=== PATIENT | female | born 1950 | race Asian ===

== ENCOUNTER 2016-02-21 09:30 | Outpatient (CLI) | payer MEDICARE, OTHER | END 2016-02-21 09:31 | disposition home or self-care (01) | DX: E87.6 Hypokalemia (principal) ==

== ENCOUNTER 2016-05-08 09:38 | Outpatient (CLI) | payer MEDICARE, OTHER | END 2016-05-08 09:39 | disposition home or self-care (01) | DX: E87.6 Hypokalemia (principal); I10 Essential (primary) hypertension; Z79.899 Other long term (current) drug therapy ==

== ENCOUNTER 2016-07-05 09:28 | Observation (INO) | payer MEDICARE, OTHER ==
--- NOTE | 2016-07-05 09:40 | ED Physician Documentation ---
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 - Present Medications Home Medications: Ambulatory Orders Medication Instructions Recorded Confirmed Atenolol 25 mg ORAL BID 04/04/14 07/05/16 Pravastatin Sodium 40 mg PO QPM 04/04/14 07/05/16 Aspirin [Aspirin EC] 81 mg PO DAILY 07/05/16 07/05/16 Hydrochlorothiazide 25 mg PO DAILY 07/05/16 07/05/16 Potassium Chloride 10 meq PO Q48H 07/05/16 07/05/16 - Allergies Allergies/Adverse Reactions: Allergies Allergy/AdvReac Type Severity Reaction Status Date / Time No Known Drug Allergies Allergy Verified 04/04/14 10:29 - Social History Does the pt smoke?: No Smoking Status: Never smoker Does the pt drink ETOH?: No Does the pt have substance abuse?: No PD ED PE NORMAL - Vitals Vital signs reviewed: Yes - General General: No: Alert and oriented X 3 (X 2) - HEENT HEENT: Atraumatic, PERRL, EOMI - Neck Neck: Supple, no meningeal sign - Cardiac Cardiac: RRR - Respiratory Respiratory: No respiratory distress, Clear bilaterally - Abdomen Abdomen: Soft, Non tender - Derm Derm: Normal color - 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 No: Alert and oriented X 3 (person and place only), No motor deficit (R hemiparesis baseline per ) Results - Vitals Vitals: Vital Signs - 24 hr 07/05/16 09:32 Temperature 36.9 C Heart Rate 79 Respiratory 20 Rate Blood Pressure 155/110 H O2 Saturation 99 Oxygen O2 Source Room air - EKG (time done) 0942 Rate: Rate (enter#) (79) Rhythm: Atrial fibrillation Intervals: No: Normal VA Ischemia: Non specific changes (flat T waves diffusely, inv T waves inf) - Labs Labs: Laboratory Tests 07/05/16 07/05/16 07/05/16 09:39 10:00 10:00 WBC 4.8 RBC 4.20 Hgb 13.3 Hct 37.7 MCV 89.7 MCH 31.8 H MCHC 35.4 RDW 13.2 Plt Count 168 MPV 6.3 L Neut # 2.7 Lymph # 1.6 [place] # 0.4 Eos # 0.1 Baso # 0.0 Absolute Nucleated RBC 0.00 Nucleated RBCs 0.0 Sodium 139 Potassium 3.9 Chloride 102 Carbon Dioxide 29 Anion Gap 8.0 BUN 16 Creatinine 0.9 Estimated GFR (MDRD) 63 L Glucose 111 H POC Whole Bld Glucose 84 Calcium 9.5 - Rads (name of study) CTH Radiology: See rad report PD MEDICAL DECISION MAKING - ED course ED course: sx slightly worse - more confused more reptitive questioning - per SO R weakness is at baseline not a TPA candidate 2/2 prior hemorrhagic CVA but d/w [place] 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
[2016-07-05 10:10] LABS: BASOPHILS % (AUTO) 0.9 %; EOSINOPHILS # (AUTO) 0.1 10^3/uL (0.0-0.7); EOSINOPHILS % (AUTO) 2.9 %; HCT - HEMATOCRIT 37.7 % (37.0-47.0); HGB - HEMOGLOBIN 13.3 g/dL (12.0-16.0); LYMPHOCYTES # (AUTO) 1.6 10^3/uL (1.5-3.5); LYMPHOCYTES % (AUTO) 32.1 %; MEAN CORPUSCULAR HEMOGLOBIN 31.8 pg (27.0-31.0); MEAN CORPUSCULAR HGB CONC 35.4 g/dL (32.0-36.0); MEAN CORPUSCULAR VOLUME 89.7 fL (81.0-99.0); MEAN PLATELET VOLUME 6.3 fL (7.9-10.8); MONOCYTES # (AUTO) 0.4 10^3/uL (0.0-1.0); MONOCYTES % (AUTO) 7.3 %; NEUTROPHILS # (AUTO) 2.7 10^3/uL (1.5-6.6); NEUTROPHILS % (AUTO) 56.8 %; RED CELL DISTRIBUTION WIDTH 13.2 % (12.0-15.0); UNCORRECTED WHITE BLOOD COUNT 4.8 x10^3/uL; WHITE BLOOD COUNT 4.8 x10^3/uL (4.8-10.8)
--- NOTE | 2016-07-05 10:14 | CT Preliminary Report ---
Exam: CT Head W/O Impression: Redemonstration of encephalomalacia involving the left frontal lobe consistent with an ol d infarct. No evidence of an intracranial hemorrhage. No significant change when compared to the previous study. [facility] The above findings were discussed with Dr. Sarah Beth Matthews by Dr. Carrie Almeida at 10:12 hrs on . SITE ID: [id number]
--- NOTE | 2016-07-05 10:17 | CT Report ---
EXAM: CT HEAD EXAM DATE: 07/05/2016 09:58 AM. CLINICAL HISTORY: Ams, hx hemorrhagic CVA. COMPARISON: 04/04/2015. TECHNIQUE: Multiaxial CT images were obtained from the foramen magnum to the vertex. IV contrast: Non e. Reformats: Coronal. In accordance with CT protocol optimization, one or more of the following dose reduction techniques w ere utilized for this exam: automated exposure control, adjustment of mA and/or KV based on patient s ize, or use of iterative reconstructive technique. FINDINGS: There is redemonstration of encephalomalacia involving the left frontal lobe consistent with a previo us infarct. The appearance is similar to the previous study. The ventricles and cortical sulci are no rmal in appearance. There is no evidence of intraparenchymal hemorrhage or extra-axial fluid collecti on. No depressed skull fracture is seen. The visualized mastoid air cells and paranasal sinuses are c lear. No depressed skull fracture is seen. The orbits are symmetric. Impression: Redemonstration of encephalomalacia involving the left frontal lobe consistent with an ol d infarct. No evidence of an intracranial hemorrhage. No significant change when compared to the previous study. [facility] The above findings were discussed with Dr. Sarah Beth Matthews by Dr. Carrie Almeida at 10:12 hrs on . Referring Provider Line: [phone] SITE ID: [id number]
[2016-07-05 10:18] LABS: CALCIUM 9.5 mg/dL (8.5-10.3); CREATININE 0.9 mg/dL (0.4-1.0); POTASSIUM 3.9 mmol/L (3.5-5.0)
[2016-07-05] MEDS ORDERED: ONDANSETRON 4 MG/2 ML VIAL IVP PRN (10:47)
[2016-07-05] MEDS ORDERED: SODIUM CHLORIDE FLUSH 0.9% 10 ML SYRINGE IVP PRN (10:47)
[2016-07-05] MEDS ORDERED: HYDROcod/ACETAM 5/325 MG TABLET PO PRN (10:47)
[2016-07-05] MEDS ORDERED: ACETAMINOPHEN 325 MG TABLET PO PRN (10:47)
[2016-07-05] MEDS ORDERED: ONDANSETRON ODT 4 MG TABLET TL PRN (10:47)
[2016-07-05] MEDS ORDERED: IOPAMIDOL-300 100 ML VIAL IVP ONE (11:10)
--- NOTE | 2016-07-05 11:43 | CT Preliminary Report ---
Exam: CT Head Angio Impression: 1. The quality of the CT angiogram is not ideal. However, main intracranial arteries appear patent wi thout evidence of occlusion or hemodynamically significant stenosis. 2. No aneurysm is identified. 3. No enhancing intracranial space-occupying mass lesion is demonstrated on postcontrast head CT. SITE ID: [id number]
--- NOTE | 2016-07-05 13:56 | CT Report ---
CT ANGIOGRAM HEAD AND POSTCONTRAST HEAD CT CLINICAL HISTORY: 65-year-old female with transient amnesia. Please assess. COMPARISON: Head CT without contrast 07/05/2016. TECHNIQUE: CT angiogram head: 100 mL of Isovue 300 contrast were injected at a rapid rate through a large bore antecubital intraven ous catheter. The head was scanned helically during arterial phase. Data was reconstructed into 0.5 m m axial images. In addition, MIP reconstructions have been generated in multiple projections to allow better assessment of the intracranial arteries. Postcontrast head CT: Sequential 5 mm axial images were obtained through the brain following the CT angiogram. In accordance with CT protocol optimization, one or more of the following dose reduction techniques w ere utilized for this exam: automated exposure control, adjustment of mA and/or KV based on patient s ize, or use of iterative reconstructive technique. FINDINGS: CT angiogram head: Anterior circulation: The degree of intra-arterial contrast enhancement in the petrous segments of the internal carotid art eries is not optimal and the possibility of stenosis cannot be excluded. There is calcified atheroscl erotic plaque in the cavernous segments of the internal carotid arteries bilaterally. Assessment is d ifficult due to marked tortuosity of these vessels; however, no hemodynamically significant stenosis is suspected. The paraclinoid and supraclinoid ICAs appear widely patent. No ICA aneurysm is identifi ed. The A1 segments of the anterior cerebral arteries are essentially codominant. No definite anterio r communicating artery is demonstrated. There appears to be good filling of main MARIA T branches. The di stal branches are not well assessed on the images provided. The main branches of the middle cerebral arteries are unremarkable. No evidence of occlusion or hemod ynamically significant stenosis. In addition, no MCA aneurysm is demonstrated. Posterior circulation: The imaged intradural vertebral arteries are patent. The right PICA appears to be patent. No definite left PICA is demonstrated. The left PICA territory is probably supplied by the contralateral PICA or igin or ipsilateral AICA (normal anatomical variants). The basilar artery, superior cerebellar arteri es, and main branches of the posterior cerebral arteries are patent. However, there is considerable n oise on the CTA images and the possibility of mild irregularity in the posterior cerebral arteries ca nnot be excluded. Neither posterior communicating artery is demonstrated with certainty. No aneurysms are seen arising from the basilar artery trunk or apex. Postcontrast head CT: No enhancing intracranial space-occupying mass lesion is demonstrated. Noted is normal intravascular contrast enhancement in the dural venous sinuses and deep venous structures. IMPRESSION: 1. The quality of the CT angiogram is not ideal. However, main intracranial arteries appear patent wi thout evidence of occlusion or hemodynamically significant stenosis. 2. No aneurysm is identified. 3. No enhancing intracranial space-occupying mass lesion is demonstrated on postcontrast head CT. Referring Provider Line: [phone] SITE ID: [id number]
[2016-07-05] MEDS ORDERED: SODIUM CHLORIDE FLUSH 0.9% 10 ML SYRINGE IVP SCH (14:00)
--- NOTE | 2016-07-05 15:17 | MRI Preliminary Report ---
Exam: MRI Brain W/O IMPRESSION: 1. No acute or recent ischemic infarct. 2. No new hemorrhage. 3. Again seen are findings of chronic hemorrhage/hemorrhagic infarct in the left deep brain. 4. More prominent confluent region of abnormal white matter T2 hyperintensity in the left frontoparie holden brain. No evidence for restricted diffusion to suggest an acute ischemic or infectious/inflammato ry process. This likely represents chronic gliosis. 4. Again seen are additional scattered smaller nodular foci of white matter T2 hyperintensity likely secondary to aging and chronic small vessel ischemic disease similar to findings on the prior exam. [facility] SITE ID: [id number]
--- NOTE | 2016-07-05 15:32 | HISTORY & PHYSICAL EXAMINATION ---
DATE OF ADMISSION: 07/05/2016 PRIMARY CARE PROVIDER: Mat Carpio MD. ADMITTING PROVIDER: Kat Blackwood MD. CHIEF COMPLAINT: Sudden memory loss. HISTORY OF PRESENT ILLNESS: She is a very pleasant 65-year-old female who has had a hemorrha [facility] stroke in January 2006, left brain, and it left her with residuals of a weak right arm and weak right leg. Her says that he is astounded by how much she was able to recover and she can cook , quilt, do light housekeeping and pretty much keep up with him. Every once in awhile she has some mi ld memory problems, but otherwise she leads a relatively normal life. She had a scare in March where she was having some facial numbness and she was reseen in the emergency room and had a caroti d Doppler that was negative and a CT of the head was negative. She was not admitted. She has been in her usual state of health with no new complaints, no new falls, when this morning the y were getting ready to go have a cup of coffee. They are both retired, and are very social people. W hen he was in the garage and his came out, he noticed that she seemed vague, a little bit anxiou s and he watched her struggle to try and open the car door and get in the car. She could not seem to figure out how to get into the car. Then when he was talking to her, she was expressing surprise at t he jacob in their yard. She planted them, and she wanted to know who those people were that were wo rking in their yard and it the landscape people that they have always used. There is no new weakness, no new ataxia. Just confusion and memory loss. He brought her to the emergency room, where she was evaluated by Dr. Matthews and she contacted [facility] tele Neurology. She is not a candidate for TPA because of her previous hemorrhagic stroke and they a sked her to do workup with the idea that she may be possibly undergoing a new seizure disorder. Initi al CT of the head is negative. They have asked her to be placed in observation to get an MRI, as well as CT angiogram. When I am examining the patient, she continues to be easily confused. She is tearful and terrified sh e is having another stroke. She is still very easily forgetful. I introduced myself and begin examini ng her when the CT angiogram electronics maintenance technician came to come get her. When she returned back from CT angiogra m I had to reintroduce myself because she did not remember that I had already met her. She keeps on a sking her "what is going on." PAST MEDICAL HISTORY: 1. Hemorrhagic stroke in 2005. She was on a trip in [place] visiting her son. They had gotten to [place], [place], where she had a stroke. She was hospitalized in [place] for 2 weeks, then transferred to [facility] for rehabilitation for 2 weeks. 2. Hypertension. 3. Hyperlipidemia. 4. G2, P2. Total abdominal hysterectomy 43 years ago after the of her daughter. 5. Eye surgery 1 year ago for possible retinal problems. is not quite sure what it was for. ALLERGIES: NO KNOWN DRUG ALLERGIES. MEDICATIONS: 1. Aspirin 81 mg p.o. daily. 2. Atenolol 25 p.o. b.i.d.. 3. Hydrochlorothiazide 25 p.o. daily. 4. Potassium 10 mEq. q. 48 hours. 5. Pravastatin 40 mg p.o. daily. SOCIAL HISTORY: She smoked irregularly in her youth. Her has known her for over 43 years. He says that she would smoke socially, maybe once a week. She has never had a problem with alcohol abuse . She was born in [place], and went to visit her sister in [place]. From there she went to the [employer] in [place], and met her there. 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 She has been to her for 47 years, it is their first marriage to each other. CODE STATUS: FULL CODE. FAMILY HISTORY: Dad at age 92 of old age. Mom in her 70s of some weird eye cancer that ende d up being metastatic. She has 3 sisters and 1 brother, but unfortunately she is not talking to them. Have 2 children, 1 lives in [place], and that is her daughter, and she has hypertension. Her son lives in [place] and has hyperlipidemia. REVIEW OF SYSTEMS: CONSTITUTIONAL: He describes her as an energetic, happy, soul, who has never let her previous hemorrh agic stroke get her down. Completely independent with activities of daily living. ENT: Denies glaucoma or cataracts. Still has a partial loss of vision in the left eye from the previo us retinal problems. No problems with chewing or swallowing, facial dysesthesia at this time. PULMONARY: Denies coughing, wheezing, shortness of breath, chest congestion. CARDIAC: Denies chest pain or palpitations, shortness of breath, edema. No history of murmur or valvu lar heart disease. GI: Very good appetite. No change in bowel habits. No dysuria, no abdominal pain. Her last colonoscop y was maybe 4-6 years ago and was negative. GENITOURINARY: Denies urgency, frequency, dysuria, flank pain. JOINTS: Occasionally bother her, but not severely so. SKIN: No lesions or rashes. PSYCHIATRIC: Occasionally depressed for very short times, but she recovers quickly. No suicidal ideat ion. DIRECTOR OF SUPPLY CHAIN: Still has right arm weakness from previous stroke. Right arm weakness is worse than the right le g weakness. She uses circumduction gait to walk because of the right leg weakness. The right arm does not have full range of motion of the shoulder or elbow and is slightly contracted, but he says that she can cook, quilt, sew, garden without difficulty. She has no history of headaches, syncope or seiz ures. PHYSICAL EXAMINATION: GENERAL: On examination, she is a very pleasant female who is oriented to place but not time or why. VITAL SIGNS: Temperature is 36.9, blood pressure is 156/99, heart rate is 68, respirations 18. She is 99% on room air. She is a moderately to severely overweight female who looks her stated age. No acut e distress other than emotionally tearful because of terrified of having a stroke. ENT: She has on ENT examination a very slight right facial droop, but speech is normal. Tongue midlin e, fall normal. NECK: Supple. No goiter or bruits. LUNGS: Clear to auscultation and percussion. CARDIOVASCULAR: PMI normally placed with a regular rate and rhythm. No murmurs, rubs or gallops. ABDOMEN: Obese, soft, nontender. It is difficult to assess for organomegaly because of her weight, bu t it is nontender and normal bowel sounds. The intertriginous folds are without Lizz. EXTREMITIES: Warm without clubbing, cyanosis, or edema. NEUROLOGIC: Neurologically she has right arm weakness 3-/5+. Right leg is 3+/5+. Left arm is normal. The left arm and leg are normal. The hand is closed and almost contracted. Slight contracture at the wrist, elbow, the right side. She can plantar and dorsiflex her right foot. She responds to 1 step co mmands. Memory is very short and brief, again having to reintroduce myself twice in the 45 minutes sp ent with her. Sodium is 139, potassium 3.9, BUN 16, creatinine 0.9. CBC is normal. IMAGING: Head CT is negative for new acute event and has her old encephalomalacia on the left side on the left frontal lobe consistent with an old infarct. Review of carotids 04/04/2014 show plaquing, but no obstruction. ASSESSMENT/PLAN: 1. Transient global amnesia. Check CT angiogram and MRI of head. It has been explained to me by Dr. Krystal rapp that if there is attenuation that I need to be suspicious for possible seizure disorder. There would be attenuation in her old stroke distribution. If that is present [facility]. Other cause could be a small stroke. We will await evaluation and study. In addition to edin alfonso in observation for vital signs and neuro checks, check tele. 2. Hypertension, controlled. No change in medication. 3. Previous history of hemorrhagic stroke, not ischemic stroke. Nevertheless, continue statin and asp irin. 4. FULL CODE STATUS. 5. Deep venous thrombosis prophylaxis with BONILLA slater. JOB #: [id number] EXT JOB #:[id number]
--- NOTE | 2016-07-05 15:41 | MRI Report ---
EXAM: MRI BRAIN WITHOUT CONTRAST EXAM DATE: 07/05/2016 02:35 PM. CLINICAL HISTORY: Transient amnesia. COMPARISON: 01/22/2006. TECHNIQUE: Multiplanar, multisequence T1-weighted and fluid-sensitive MR sequences of the brain were performed. Sequences optimized for routine evaluation. Other: None. IV Contrast: None. FINDINGS: Brain Volume: Normal for age. Parenchyma/Dura: No new or acute hemorrhage or stroke. No focal restricted diffusion. Again seen are findings of left deep cerebral encephalomalacia, gliosis and hemosiderin staining consistent with old hemorrhage or hemorrhagic infarct in the left deep brain. Again seen are numerous scattered foci of abnormal white matter T2 hyperintensity in both cerebral he mispheres. There is additional more prominent confluent white matter T2 hyperintensity in the left fr ontoparietal region superior to the site of previous hemorrhage. No positive mass-effect. This likely represents chronic gliosis. No restricted diffusion. No midline shift. No abnormal subdural fluid collection. Ventricles/Cisterns: No developing hydrocephalus. Sinuses: No acute-appearing sinus or mastoid disease. Bones: No focal pathologic-appearing marrow signal changes in the skull or clivus. Other: The major arterial skull base flow voids are present. IMPRESSION: 1. No acute or recent ischemic infarct. 2. No new hemorrhage. 3. Again seen are findings of chronic hemorrhage/hemorrhagic infarct in the left deep brain. 4. More prominent confluent region of abnormal white matter T2 hyperintensity in the left frontoparie holden brain. No evidence for restricted diffusion to suggest an acute ischemic or infectious/inflammato ry process. This likely represents chronic gliosis. 5. Again seen, are additional scattered smaller nodular foci of white matter T2 hyperintensity likely secondary to aging and chronic small vessel ischemic disease similar to findings on the prior exam. [facility] Referring Provider Line: [phone] SITE ID: [id number]
[2016-07-05 16:11] VITALS: BP 133/90
--- NOTE | 2016-07-05 17:40 | Discharge Plan ---
Discharge Plan Disposition: 01 Home, Self Care Condition: Stable Diet: Regular Activity Restrictions: Activity as Tolerated Shower Restrictions: No Driving Restrictions: Yes (no driving) Additional Instructions or Follow Up instructions: You were placed in observation because of sudden onset of confusion and loss of memory. You already have residual right-sided body weakness from her previous hemorrhagic stroke. We worried that you're having another stroke but the CAT scan of your head, MRI of your head, and the dye study of the arteries of your brain show only your old stroke but nothing else. You were still with significant memory deficit as we discharge you. We have not found any evidence of infection, stroke, drug intoxication, electrolyte abnormalities. In speaking to [facility], that neurologist thinks you have transient global amnesia. It may take up to 2 days for it to resolve. If you still have confusion tomorrow afternoon, please call Dr. Carpio's office and see either Dr. Carpio or CAROLINE Graves Sunday morning. They need to refer you to see neurology Sunday or Sunday next week. No Smoking: If you smoke, Please STOP! Call for help.
[2016-07-05] MEDS ORDERED: THIAMINE 100 MG TABLET PO SCH (18:00)
--- NOTE | 2016-07-05 18:55 | DISCHARGE SUMMARY ---
DATE OF ADMISSION: 07/05/2016 DATE OF DISCHARGE: 07/05/2016 PRIMARY CARE PROVIDER: Mat Carpio MD. DISCHARGE DIAGNOSES: 1. Transient global amnesia. 2. Hypertension. 3. Residual hemiplegia, right side, from previous stroke. DISCHARGE MEDICATIONS: 1. Aspirin 81 mg a day. 2. Atenolol 25 mg p.o. b.i.d.. 3. Hydrochlorothiazide 25 mg p.o. daily. 4. Potassium 10 mEq. every 48 hours. 5. Pravastatin 40 mg p.o. q.p.m.. PRINCIPAL PROCEDURES: 1. CT of the head showing encephalomalacia from her previous hemorrhagic stroke on the left. 2. MRI of the head showing same findings. 3. CT angiogram of the head showing no acute changes. No aneurysms, no disruption of blood flow. HOSPITAL COURSE: She is a 65-year-old female who lives with her , is independent with activities of daily living. She has the residuals of her previous left brain hemorrhagic stroke and right body weakness, but she is able to cook, clean, quilt, and be very active. As she was getting in the car this morning to go drink a cup of coffee with her , he noticed that she was suddenly confused and could not figure out how to open up the car door to get into the car. She started remarking that she did not know where she was, whose house this was. She did not understand what the jacob were in the garden even though she planted them, and most of all she did not recognize her gardeners and wanted to know who these people were in the yard. There were no focal deficits that were new associated with this. There has been no antecedent symptoms of illness or infection. She fell 4 weeks ago with a blow to her head with a little bit of bleeding in the back of her scalp, but nothing else, and he did not take her to the doctor for that. In the emergency room, she was normotensive. She had the right body residual, but no new findings, and was very confused. Speech is normal, but memory is not intact. I had to reintroduce myself several times over the course of 12 hours. She is not remembering anything anybody told her including her . She did not know what day it is. She does not know where she is, but she does recognize her . The above workup was completely negative for a new stroke. She continues to have confusion and disorientation. I re-spoke to [facility] tele Neurology on-call, Dr. Quarles. He was the physician that spoke to Dr. Matthews earlier today. He feels that she has transient global amnesia as do I. She should have already been improving after several hours but has not. As such, he recommends that she can go home as long as she is safe. Her says that he can take her home and would prefer to take her home. If she is not better by tomorrow, to please call for an appointment with her primary care provider on Sunday. I have already spoken to Dr. Mat Carpio, who is supervising Cristina Landin. Ms. Landin is the primary care provider taking care of this patient. After Sunday's evaluation if she is still confused, to refer her to Neurology for EEG and full evaluation. At this time, feels safe taking her home. I have given him instructions on transient global amnesia. Temperature is 36.2. Blood pressure is 133/90, pulse is 82, respirations 17, 93% on room air. She is alert, disoriented female. Short, overweight, pleasant. Slight right facial droop as a residual of her previous stroke. She has slight contracture of her hand, wrist, elbow and shoulder at the right side with diminished range of motion in that right upper extremity, but able to use it. She is able to lift her right leg and plantar and dorsiflex. However, weakness is 3-/5+ in the right arm and 3+/5 + in the right leg. Left body is normal. Speech is normal, swallowing is normal. She is discharged in stable condition with the above instructions. JOB #: [id number] EXT JOB #:[id number] [facility]ITAL[facility]
[2016-07-05] MEDS ORDERED: ATENOLOL 25 MG TABLET PO SCH (21:00)
[2016-07-06] MEDS ORDERED: PRAVASTATIN 40 MG TABLET PO SCH (09:00)
[2016-07-06] MEDS ORDERED: hydroCHLOROthiazide 12.5 MG CAPSULE PO SCH (09:00)
[2016-07-06] MEDS ORDERED: POLYETHYLENE GLYCOL 3350 17 GM PACKET PO SCH (09:00)
== END 2016-07-05 17:50 | disposition home or self-care (01) ==
LOC: ED 09:28 → MS 10:47
PROVIDERS: ADMIT Specialist; ATTEND Specialist
DX: G45.4 Transient global amnesia (principal); I10 Essential (primary) hypertension; I69.151 Hemiplegia and hemiparesis following nontraumatic intracerebral hemorrhage affecting right dominant side; I69.192 Facial weakness following nontraumatic intracerebral hemorrhage; I48.91 Unspecified atrial fibrillation; E78.5 Hyperlipidemia, unspecified; E66.9 Obesity, unspecified; Z79.82 Long term (current) use of aspirin; Z91.81 History of falling; Z87.891 Personal history of nicotine dependence; Z68.35 Body mass index [BMI] 35.0-35.9, adult
CPT/HCPCS: 36415; 70450; 70496; 70551; 80048; 85025; 93005; 93010; 99284; A9270; G0378; Q9967; 99283

== ENCOUNTER 2016-10-10 09:19 | Outpatient (CLI) | payer MEDICARE, OTHER ==
[2016-10-10 09:36] LABS: BASOPHILS % (AUTO) 0.8 %; EOSINOPHILS # (AUTO) 0.1 10^3/uL (0.0-0.7); EOSINOPHILS % (AUTO) 2.6 %; HCT - HEMATOCRIT 38.1 % (37.0-47.0); HGB - HEMOGLOBIN 13.2 g/dL (12.0-16.0); LYMPHOCYTES # (AUTO) 1.8 10^3/uL (1.5-3.5); LYMPHOCYTES % (AUTO) 33.1 %; MEAN CORPUSCULAR HEMOGLOBIN 30.6 pg (27.0-31.0); MEAN CORPUSCULAR HGB CONC 34.7 g/dL (32.0-36.0); MEAN CORPUSCULAR VOLUME 88.2 fL (81.0-99.0); MEAN PLATELET VOLUME 6.2 fL (7.9-10.8); MONOCYTES # (AUTO) 0.3 10^3/uL (0.0-1.0); MONOCYTES % (AUTO) 6.4 %; NEUTROPHILS # (AUTO) 3.1 10^3/uL (1.5-6.6); NEUTROPHILS % (AUTO) 57.1 %; RED BLOOD COUNT 4.32 10^6/uL (4.20-5.40); RED CELL DISTRIBUTION WIDTH 13.1 % (12.0-15.0); UNCORRECTED WHITE BLOOD COUNT 5.4 x10^3/uL; WHITE BLOOD COUNT 5.4 x10^3/uL (4.8-10.8)
[2016-10-10 10:23] LABS: ALBUMIN/GLOBULIN RATIO 1.2 (1.0-2.2); BILIRUBIN,TOTAL 0.9 mg/dL (0.2-1.0); BUN - BLOOD UREA NITROGEN 23 mg/dL (6-20); CALCIUM 9.8 mg/dL (8.5-10.3); CARBON DIOXIDE - CO2 26 mmol/L (21-32); CHLORIDE 102 mmol/L (101-111); CHOL/HDL RATIO 2.6 (<4.4); CHOLESTEROL 165 mg/dL; CREATININE 0.9 mg/dL (0.4-1.0); GFR - MDRD 62 (>89); GLUCOSE 95 mg/dL (70-100); HDL CHOLESTEROL 64 mg/dL; LDL/HDL RATIO 1.4 (<4.4); POTASSIUM 3.5 mmol/L (3.5-5.0); SODIUM 137 mmol/L (135-145); TOTAL PROTEIN 7.5 g/dL (6.7-8.2); TRIGLYCERIDES 71 mg/dL; VLDL CHOLESTEROL 14 mg/dL
== END 2016-10-10 09:20 | disposition home or self-care (01) ==
LOC: LAB 09:19
PROVIDERS: ATTEND Physician Assistant Medical
DX: M81.0 Age-related osteoporosis without current pathological fracture (principal); I10 Essential (primary) hypertension; Z11.59 Encounter for screening for other viral diseases; I48.2 Chronic atrial fibrillation; E78.5 Hyperlipidemia, unspecified; Z79.899 Other long term (current) drug therapy
CPT/HCPCS: 36415; 80053; 80061; 82306; 84443; 85025; 86803

== ENCOUNTER 2016-11-28 09:57 | Outpatient (CLI) | payer MEDICARE, OTHER ==
--- NOTE | 2016-11-28 15:38 | DEXA Report ---
DEXA SCAN: 11/28/2016 INDICATION: Osteoporosis. TECHNIQUE: Dual energy x-ray absorptiometry (DXA) was performed on a [employer] system. Regions measured are the AP spine, femoral neck, and, if needed, forearm. COMPARISON: None. In accordance with the International Society for Clinical Densitometry (ISCD) guidelines, data from previous exams may be reanalyzed using current recommendations and techniques. This is done to allow a more accurate basis for comparison with the current study. FINDINGS Data for the lumbar spine is as follows: REGION BMD (g/cm/cm) T-SCORE Z-SCORE L1 0.828 -2.5 -1.8 L2 1.000 -1.7 -1.0 L3 1.071 -1.1 -0.4 L4 1.265 0.5 1.2 TOTAL 1.061 -1.0 -0.3 NOTE: All evaluable vertebrae are used for classification. Data for the hip is as follows: REGION BMD (g/cm/cm) T-SCORE Z-SCORE Neck 0.970 -0.5 0.5 TOTAL 1.019 0.1 0.7 NOTE: The femoral neck or total proximal femur, whichever is lowest, is used for classification. IMPRESSION: THE WHO CLASSIFICATION BASED ON THE INTERNATIONAL REFERENCE STANDARD IS OSTEOPENIA. FRACTURE RISK IS INCREASED. RECOMMENDATION: Patients with diagnosis of osteoporosis or osteopenia should have regular bone mineral density assessment. For those eligible for Medicare, routine testing is allowed once every 2 years. Testing frequency can be increased for patients who have rapidly progressing disease or for those who are receiving medical therapy to restore bone mass. COMMENT: World Health Organization (WHO) definitions for osteoporosis and osteopenia: NORMAL BMD: T-score at -1.0 or higher, fracture risk is low. OSTEOPENIA BMD: T-score between -1.0 and -2.5, fracture risk is increased. OSTEOPOROSIS BMD: T-score at -2.5 or lower, fracture risk high. National Osteoporosis Foundation recommends: 1. Obtain adequate dietary calcium (at least 1200 mg per day) and vitamin D (400 -800 international units per day). 2. Participate, as appropriate, in regular weightbearing and muscle- strengthening exercise. 3. Avoid tobacco use and reduce alcohol and caffeine intake. 4. For more detailed information see the website at www.NOF.org. MTDD
== END 2016-11-28 09:58 | disposition home or self-care (01) ==
LOC: DI 09:57
PROVIDERS: ATTEND Physician Assistant Medical
DX: M85.88 Other specified disorders of bone density and structure, other site (principal)
CPT/HCPCS: 77080

== ENCOUNTER 2017-10-18 08:00 | Outpatient (CLI) | payer MEDICARE, OTHER ==
[2017-10-18 09:04] LABS: EOSINOPHILS # (AUTO) 0.1 10^3/uL (0.0-0.7); EOSINOPHILS % (AUTO) 2.4 %; HGB - HEMOGLOBIN 13.6 g/dL (12.0-16.0); LYMPHOCYTES # (AUTO) 1.7 10^3/uL (1.5-3.5); LYMPHOCYTES % (AUTO) 35.9 %; MEAN CORPUSCULAR HEMOGLOBIN 31.9 pg (27.0-31.0); MEAN CORPUSCULAR HGB CONC 35.2 g/dL (32.0-36.0); MEAN CORPUSCULAR VOLUME 90.7 fL (81.0-99.0); MEAN PLATELET VOLUME 6.4 fL (7.9-10.8); MONOCYTES # (AUTO) 0.3 10^3/uL (0.0-1.0); MONOCYTES % (AUTO) 6.4 %; NEUTROPHILS # (AUTO) 2.6 10^3/uL (1.5-6.6); NEUTROPHILS % (AUTO) 54.3 %; PLT - PLATELET COUNT 185 10^3/uL (130-450); RED BLOOD COUNT 4.27 10^6/uL (4.20-5.40); RED CELL DISTRIBUTION WIDTH 13.1 % (12.0-15.0); WHITE BLOOD COUNT 4.8 x10^3/uL (4.8-10.8)
[2017-10-18 09:48] LABS: ALBUMIN 3.9 g/dL (3.2-5.5); ALBUMIN/GLOBULIN RATIO 1.3 (1.0-2.2); ALKALINE PHOSPHATASE 53 IU/L (42-121); ALT ALANINE AMINOTRANSFERASE 24 IU/L (10-60); AST ASPARTATE AMINOTRANSFERASE 28 IU/L (10-42); BILIRUBIN,TOTAL 0.6 mg/dL (0.2-1.0); BUN - BLOOD UREA NITROGEN 24 mg/dL (6-20); CALCIUM 9.5 mg/dL (8.5-10.3); CARBON DIOXIDE - CO2 27 mmol/L (21-32); CHLORIDE 99 mmol/L (101-111); CHOL/HDL RATIO 2.8 (<4.4); CHOLESTEROL 199 mg/dL; CREATININE 0.8 mg/dL (0.4-1.0); GFR - MDRD 71 (>89); GLUCOSE 96 mg/dL (70-100); HDL CHOLESTEROL 71 mg/dL; LDL CHOLESTEROL,CALCULATED 110 mg/dL; LDL/HDL RATIO 1.5 (<4.4); SODIUM 136 mmol/L (135-145); VLDL CHOLESTEROL 18 mg/dL
== END 2017-10-18 08:01 | disposition home or self-care (01) ==
LOC: LAB 08:00
PROVIDERS: ATTEND Physician Assistant Medical
DX: I48.2 Chronic atrial fibrillation (principal); I10 Essential (primary) hypertension; E78.5 Hyperlipidemia, unspecified; M81.0 Age-related osteoporosis without current pathological fracture; Z79.899 Other long term (current) drug therapy
CPT/HCPCS: 36415; 80053; 80061; 82306; 83721; 84443; 85025

== ENCOUNTER 2018-04-23 09:39 | Outpatient (CLI) | payer MEDICARE, OTHER ==
[2018-04-23 10:27] LABS: BASOPHILS % (AUTO) 0.5 %; EOSINOPHILS # (AUTO) 0.1 10^3/uL (0.0-0.7); EOSINOPHILS % (AUTO) 1.4 %; HGB - HEMOGLOBIN 14.1 g/dL (12.0-16.0); LYMPHOCYTES # (AUTO) 1.4 10^3/uL (1.5-3.5); LYMPHOCYTES % (AUTO) 26.5 %; MEAN CORPUSCULAR HEMOGLOBIN 31.4 pg (27.0-31.0); MEAN CORPUSCULAR HGB CONC 34.6 g/dL (32.0-36.0); MEAN CORPUSCULAR VOLUME 90.8 fL (81.0-99.0); MEAN PLATELET VOLUME 6.3 fL (7.9-10.8); MONOCYTES # (AUTO) 0.4 10^3/uL (0.0-1.0); NEUTROPHILS # (AUTO) 3.5 10^3/uL (1.5-6.6); NEUTROPHILS % (AUTO) 64.6 %; PLT - PLATELET COUNT 211 10^3/uL (130-450); WHITE BLOOD COUNT 5.5 x10^3/uL (4.8-10.8)
[2018-04-23 10:33] LABS: CALCIUM 9.8 mg/dL (8.5-10.3); CREATININE 0.8 mg/dL (0.4-1.0)
== END 2018-04-23 09:40 | disposition home or self-care (01) ==
LOC: LAB 09:39
PROVIDERS: ATTEND Family Medicine
DX: I10 Essential (primary) hypertension (principal); I48.2 Chronic atrial fibrillation
CPT/HCPCS: 36415; 80048; 85025

== ENCOUNTER 2018-07-04 16:42 | Emergency (ER) | payer MEDICARE, OTHER ==
--- NOTE | 2018-07-04 17:36 | ED Physician Documentation ---
History of Present Illness - Stated complaint Stated Complaint: GLF/RT SIDE - Chief complaint Chief Complaint: Ext Problem - History obtained from History obtained from: Patient, Family - History of Present Illness Timing: Prior to arrival - Additonal information Additional information: This is a 67-year-old woman who has had a prior stroke that left her with right- sided weakness. She tripped on the rug at home and fell landing onto her right side. She is here because of pain in her right wrist and foot. She has been able to ambulate on the foot but putting pressure down exacerbates the pain. She has some chronic tingling in the right hand due to the prior stroke and she cannot move her fingers. She denies hitting her head or passing out. She is n ot currently on blood thinners because they are what caused her stroke. She denies hip or knee pain. No chest or abdominal pain. No neck or back pain. She has not taken any medications for the pain from this fall. Review of Systems Skin: denies: Laceration (s) Musculoskeletal: reports: Extremity pain (Right wrist and right foot), Joint pain (Right wrist), Joint swelling (Right wrist). 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 HEENT: Other - Present Medications Home Medications: Ambulatory Orders Medication Instructions Recorded Confirmed Atenolol 25 mg ORAL BID 04/04/14 07/05/16 Pravastatin Sodium 40 mg PO QPM 04/04/14 07/05/16 Aspirin [Aspirin EC] 81 mg PO DAILY 07/05/16 07/05/16 Potassium Chloride 10 meq PO Q48H 07/05/16 07/05/16 hydroCHLOROthiazide 25 mg PO DAILY 07/05/16 07/05/16 [Hydrochlorothiazide] - Allergies Allergies/Adverse Reactions: Allergies Allergy/AdvReac Type Severity Reaction Status Date / Time zucchini AdvReac Unknown Uncoded 07/04/18 16:53 - Social History Does the pt smoke?: No Smoking Status: Never smoker Does the pt drink ETOH?: No Does the pt have substance abuse?: No PD ED PE NORMAL - Vitals Vital signs reviewed: Yes - General General: Alert and oriented X 3, No acute distress, Well developed/nourished - HEENT HEENT: Atraumatic - Respiratory Respiratory: No respiratory distress - Derm Derm: Normal color, Warm and dry - Neuro Neuro: Alert and oriented X 3, Other (She is unable to move her hand or fingers or wiggle her toes due to prior stroke.) - Psych Psych: Normal mood, Normal affect PD ED PE EXPANDED - Extremities Extremities: Right wrist (Obvious joint effusion with limited range of motion. There is pain of the distal radius. She has flexion contractures of her right fingers. No open wound.), Right foot (No obvious swelling or bruising. She has pain with palpation at the base of the fifth and fourth metatarsals. She has no movement of her toes due to the prior stroke.) Results - Vitals Vitals: Vital Signs - 24 hr 07/04/18 16:47 Temperature 36 C L Heart Rate 72 Respiratory 16 Rate Blood Pressure 139/76 H O2 Saturation 98 Oxygen O2 Source Room air PD MEDICAL DECISION MAKING - ED course Complexity details: reviewed results, d/w patient, d/w family, d/w internet sales consultant ED course: The x-ray showed an intra-articular impacted distal radius fracture in the right wrist with an ulnar styloid fracture as well as a proximal fifth metatarsal fracture on the right foot. Discussed case with Dr. Strickland and he agrees with a walking boot and sugar tong splint on the right wrist and follow-up early next week. I discussed with the patient she should minimize walking. There is a risk of nonunion of this fracture which could require surgical repair. Patient declined a prescription for pain medications. Departure - Departure Disposition: 01 Home, Self Care Clinical Impression: Distal radius fracture, right Qualifiers: Encounter type: initial encounter Fracture type: closed Fracture morphology: other intra-articular Qualified Code(s): S52.571A - Other intraarticular fracture of lower end of right radius, initial encounter for closed fracture Fracture of right ulnar styloid Qualifiers: Encounter type: initial encounter Fracture type: closed Fracture alignment: nondisplaced Qualified Code(s): S52.614A - Nondisplaced fracture of right ulna styloid process, initial encounter for closed fracture Metatarsal fracture Qualifiers: Encounter type: initial encounter Metatarsal bone: fifth Fracture type: closed Fracture alignment: nondisplaced Laterality: right Qualified Code(s): S92.354A - Nondisplaced fracture of fifth metatarsal bone, right foot, initial encounter for closed fracture Condition: Good Instructions: ED Cast Care Plaster, ED Boot Aircast Walker Follow-Up: Jett Strickland MD [Provider Admit Priv/Credential] - Jason Kennedy MD [Primary Care Provider] - Comments: Do not remove the walking boot or the splint on the wrist. May still elevate and ice the right wrist just do not get the splint wet.Minimize the amount of walking or doing on the right foot. Tylenol is okay to take for pain. Contact the orthopedist, Dr Strickland, to schedule a follow-up appointment early next week. Return to the emergency department if any problems arise.
--- NOTE | 2018-07-04 17:49 | XRAY Report ---
Reason: GLF pain, swelling Procedure Date: 07/04/2018 Accession Number: [id number] / [id number] Procedure: XR - Foot 3 View RT CPT Code: FULL RESULT: EXAM: RIGHT FOOT RADIOGRAPHY EXAM DATE: 07/04/2018 04:59 PM. CLINICAL HISTORY: GLF pain, swelling. COMPARISON: None. TECHNIQUE: 3 views. FINDINGS: Bones: An acute displaced transverse fracture is seen through the base of right fifth metatarsal with extension into the tarsometatarsal articulation. Joints: Normal. No subluxations. Soft Tissues: Mild soft tissue swelling at the fracture site noted. IMPRESSION: An acute displaced transverse fracture through the base of the right metatarsal with extension into the tarsal metatarsal articulation. Mild overlying soft tissue swelling. No malalignment. RADIA
--- NOTE | 2018-07-04 17:52 | XRAY Report ---
Reason: GLF pain swelling Procedure Date: 07/04/2018 Accession Number: [id number] / [id number] Procedure: XR - Wrist 4 View RT CPT Code: FULL RESULT: EXAM: RIGHT WRIST RADIOGRAPHY EXAM DATE: 07/04/2018 04:59 PM. CLINICAL HISTORY: GLF pain swelling. COMPARISON: None. TECHNIQUE: 3 views. FINDINGS: Bones: Significant osteopenia. Acute displaced transverse fracture is seen through the distal right radius with articular extension. No impaction or angulation between the fracture fragment. An acute transverse fracture is seen through the styloid process of right ulna as well. Joints: Normal. No subluxations. Soft Tissues: Moderate soft tissue swelling is seen overlying the fracture site. IMPRESSION: Significant osteopenia. Acute displaced transverse fracture through distal right radius with articular extension. No impaction or angulation between fracture fragments. Acute fracture of the styloid process of right ulna. RADIA
[2018-07-04 18:39] VITALS: BP 135/88
== END 2018-07-04 18:43 | disposition home or self-care (01) ==
LOC: ED 16:42
DX: S52.571A Other intraarticular fracture of lower end of right radius, initial encounter for closed fracture (principal); S52.614A Nondisplaced fracture of right ulna styloid process, initial encounter for closed fracture; S92.351A Displaced fracture of fifth metatarsal bone, right foot, initial encounter for closed fracture; W01.0XXA Fall on same level from slipping, tripping and stumbling without subsequent striking against object, initial encounter; Y93.01 Activity, walking, marching and hiking; Y92.009 Unspecified place in unspecified non-institutional (private) residence as the place of occurrence of the external cause; I69.351 Hemiplegia and hemiparesis following cerebral infarction affecting right dominant side; Z79.82 Long term (current) use of aspirin
CPT/HCPCS: 29105; 99283

== ENCOUNTER 2018-11-21 08:27 | Outpatient (CLI) | payer MEDICARE, OTHER ==
[2018-11-21 09:04] LABS: BASOPHILS % (AUTO) 0.7 %; EOSINOPHILS # (AUTO) 0.1 10^3/uL (0.0-0.7); HGB - HEMOGLOBIN 13.7 g/dL (12.0-16.0); LYMPHOCYTES # (AUTO) 1.6 10^3/uL (1.5-3.5); LYMPHOCYTES % (AUTO) 29.6 %; MEAN CORPUSCULAR HEMOGLOBIN 30.4 pg (27.0-31.0); MEAN CORPUSCULAR HGB CONC 33.4 g/dL (32.0-36.0); MEAN CORPUSCULAR VOLUME 91.1 fL (81.0-99.0); MEAN PLATELET VOLUME 8.3 fL (7.9-10.8); MONOCYTES # (AUTO) 0.4 10^3/uL (0.0-1.0); MONOCYTES % (AUTO) 6.5 %; NEUTROPHILS # (AUTO) 3.4 10^3/uL (1.5-6.6); PLT - PLATELET COUNT 185 10^3/uL (130-450); RED CELL DISTRIBUTION WIDTH 12.9 % (12.0-15.0); WHITE BLOOD COUNT 5.5 x10^3/uL (4.8-10.8)
[2018-11-21 09:35] LABS: ALBUMIN 4.3 g/dL (3.2-5.5); ALBUMIN/GLOBULIN RATIO 1.3 (1.0-2.2); ALKALINE PHOSPHATASE 52 IU/L (42-121); ALT ALANINE AMINOTRANSFERASE 19 IU/L (10-60); AST ASPARTATE AMINOTRANSFERASE 23 IU/L (10-42); BUN - BLOOD UREA NITROGEN 20 mg/dL (6-20); CALCIUM 9.6 mg/dL (8.5-10.3); CARBON DIOXIDE - CO2 27 mmol/L (21-32); CHLORIDE 99 mmol/L (101-111); CHOL/HDL RATIO 3.1 (<4.4); CHOLESTEROL 224 mg/dL; CREATININE 0.9 mg/dL (0.4-1.0); GFR - MDRD 62 (>89); GLUCOSE 98 mg/dL (70-100); HDL CHOLESTEROL 73 mg/dL; LDL CHOLESTEROL,CALCULATED 124 mg/dL; LDL/HDL RATIO 1.7 (<4.4); SODIUM 136 mmol/L (135-145); TOTAL PROTEIN 7.6 g/dL (6.7-8.2); VLDL CHOLESTEROL 27 mg/dL
== END 2018-11-21 08:28 | disposition home or self-care (01) ==
LOC: LAB 08:27
PROVIDERS: ATTEND Nurse Practitioner
DX: E66.3 Overweight (principal); E87.6 Hypokalemia; Z79.899 Other long term (current) drug therapy; I73.9 Peripheral vascular disease, unspecified; E78.5 Hyperlipidemia, unspecified; M81.0 Age-related osteoporosis without current pathological fracture; I48.20 Chronic atrial fibrillation, unspecified; I10 Essential (primary) hypertension
CPT/HCPCS: 36415; 80053; 80061; 82306; 83721; 84443; 85025

== ENCOUNTER 2019-06-05 11:02 | Outpatient (CLI) | payer MEDICARE, OTHER ==
--- NOTE | 2019-06-05 19:53 | XRAY Report ---
Reason: BACK PAIN LUMBAR Procedure Date: 06/05/2019 Accession Number: [id number] / [id number] Procedure: XR - Lumbar Spine Complete CPT Code: Final Report FULL RESULT: EXAM: LUMBOSACRAL SPINE RADIOGRAPHY EXAM DATE: 06/05/2019 11:23 AM. CLINICAL HISTORY: Chronic BACK PAIN LUMBAR. COMPARISONS: None. TECHNIQUE: 4 views. FINDINGS: Alignment: Minimal left convex lumbar spine curvature. 4 mm grade 1 spondylotic anterolisthesis of L4 on L5. Bones: Five mev-qko-imvmldw lumbar vertebral bodies are present. No fractures or bone lesions. Disks: Disk heights are preserved. Minimal anterior endplate osteophyte formation L2-L3, L3-L4, L4-L5. Facets: Mild bilateral L4-L5 and L5-S1 facet narrowing and sclerosis. Sacroiliac Joints: Unremarkable. Soft Tissues: Normal. The visualized bowel gas pattern is normal. IMPRESSION: 1. Minimal degenerative disk disease L2-L3 through L4-L5. 2. Mild bilateral L4-L5 and L5-S1 facet osteoarthritis with spondylotic grade 1 anterolisthesis L4 on L5. RADIA
== END 2019-06-05 11:03 | disposition home or self-care (01) ==
LOC: DI 11:02
PROVIDERS: ATTEND Family Medicine
DX: M51.36 Other intervertebral disc degeneration, lumbar region (principal); M47.817 Spondylosis without myelopathy or radiculopathy, lumbosacral region; M47.816 Spondylosis without myelopathy or radiculopathy, lumbar region; M43.16 Spondylolisthesis, lumbar region
CPT/HCPCS: 72110

== ENCOUNTER 2019-11-25 11:21 | Outpatient (CLI) | payer MEDICARE, OTHER ==
[2019-11-25 11:40] LABS: BASOPHILS # (AUTO) 0.1 10^3/uL (0.0-0.1); BASOPHILS % (AUTO) 0.9 %; EOSINOPHILS # (AUTO) 0.1 10^3/uL (0.0-0.7); EOSINOPHILS % (AUTO) 1.8 %; HGB - HEMOGLOBIN 13.7 g/dL (12.0-16.0); LYMPHOCYTES # (AUTO) 1.8 10^3/uL (1.5-3.5); MEAN CORPUSCULAR HEMOGLOBIN 30.6 pg (27.0-31.0); MEAN CORPUSCULAR HGB CONC 32.9 g/dL (32.0-36.0); MEAN CORPUSCULAR VOLUME 93.1 fL (81.0-99.0); MONOCYTES # (AUTO) 0.3 10^3/uL (0.0-1.0); MONOCYTES % (AUTO) 5.3 %; NEUTROPHILS # (AUTO) 3.4 10^3/uL (1.5-6.6); NEUTROPHILS % (AUTO) 59.5 %; PLT - PLATELET COUNT 198 10^3/uL (130-450); RED BLOOD COUNT 4.47 10^6/uL (4.20-5.40); RED CELL DISTRIBUTION WIDTH 12.5 % (12.0-15.0); WHITE BLOOD COUNT 5.7 x10^3/uL (4.8-10.8)
[2019-11-25 11:55] LABS: ALBUMIN 4.1 g/dL (3.2-5.5); ALBUMIN/GLOBULIN RATIO 1.1 (1.0-2.2); ALKALINE PHOSPHATASE 57 IU/L (42-121); ALT ALANINE AMINOTRANSFERASE 18 IU/L (10-60); AST ASPARTATE AMINOTRANSFERASE 24 IU/L (10-42); BILIRUBIN,TOTAL 0.9 mg/dL (0.2-1.0); BUN - BLOOD UREA NITROGEN 18 mg/dL (6-20); CALCIUM 9.7 mg/dL (8.5-10.3); CARBON DIOXIDE - CO2 27 mmol/L (21-32); CHLORIDE 99 mmol/L (101-111); CHOL/HDL RATIO 2.8 (<4.4); CHOLESTEROL 221 mg/dL; CREATININE 0.8 mg/dL (0.4-1.0); GLUCOSE 99 mg/dL (70-100); HDL CHOLESTEROL 79 mg/dL; LDL CHOLESTEROL,CALCULATED 130 mg/dL; LDL/HDL RATIO 1.6 (<4.4); SODIUM 136 mmol/L (135-145); TOTAL PROTEIN 7.8 g/dL (6.7-8.2); VLDL CHOLESTEROL 12 mg/dL
== END 2019-11-25 11:22 | disposition home or self-care (01) ==
LOC: LAB 11:21
PROVIDERS: ATTEND Nurse Practitioner
DX: K21.9 Gastro-esophageal reflux disease without esophagitis (principal); E87.6 Hypokalemia; Z79.899 Other long term (current) drug therapy; E78.5 Hyperlipidemia, unspecified; I10 Essential (primary) hypertension
CPT/HCPCS: 36415; 80053; 80061; 83721; 84443; 85025

== ENCOUNTER 2020-07-21 13:37 | Outpatient (CLI) | payer MEDICARE, OTHER ==
--- NOTE | 2020-07-21 17:43 | XRAY Report ---
PROCEDURE: Knee 4 View LT INDICATIONS: L KNEE PX TECHNIQUE: 4 views of the left knee(s) were acquired. COMPARISON: None. FINDINGS: Bones: Weightbearing views of the left knee demonstrate mild joint space narrowing of both the media l and lateral femorotibial compartments. There are prominent marginal osteophytes overlying the media l lateral tibial plateau. Patella is well aligned on the sunrise view. No acute fractures or dislocat ions. No suspicious bony lesions. Soft tissues: No joint effusion. No suspicious soft tissue calcifications. IMPRESSION: Left knee without acute fracture or dislocation. Tricompartmental osteoarthrosis of the left knee most pronounced in the medial and lateral compartments. Reviewed by: José Miguel Vela MD on 07/21/2020 5:42 PM PDT Approved by: José Miguel Vela MD on 07/21/2020 5:42 PM PDT Station ID: [id number]
== END 2020-07-21 13:38 | disposition home or self-care (01) ==
LOC: DI.N 13:37
PROVIDERS: ATTEND Family Medicine
DX: M25.562 Pain in left knee (principal); M17.12 Unilateral primary osteoarthritis, left knee

== ENCOUNTER 2020-08-17 12:15 | Outpatient (CLI) | payer MEDICARE, OTHER ==
--- NOTE | 2020-08-17 13:26 | XRAY Report ---
PROCEDURE: Hip w/Pelvis 1V LT INDICATIONS: L HIP PX TECHNIQUE: AP pelvis with lateral view(s) of the bilateral hip(s). COMPARISON: None. FINDINGS: Bones: No fractures or dislocations. Mild and symmetric degenerative joint space loss in the femoral acetabular joints. Pelvic ring appears intact. No suspicious bony lesions. Soft tissues: The visualized bowel gas pattern is normal. No suspicious soft tissue calcifications. IMPRESSION: Mild, symmetric femoral acetabular joint space degeneration. Reviewed by: Maribell Ramirez MD on 08/17/2020 1:25 PM PDT Approved by: Maribell Ramirez MD on 08/17/2020 1:25 PM PDT Station ID: [id number]
== END 2020-08-17 23:59 | disposition home or self-care (01) ==
LOC: DI.N 12:15
PROVIDERS: ATTEND Family Medicine
DX: M16.12 Unilateral primary osteoarthritis, left hip (principal)

== ENCOUNTER 2020-10-14 07:58 | Outpatient (CLI) | payer MEDICARE, OTHER ==
[2020-10-14 08:39] LABS: BASOPHILS % (AUTO) 0.8 %; EOSINOPHILS # (AUTO) 0.1 10^3/uL (0.0-0.7); EOSINOPHILS % (AUTO) 2.5 %; HCT - HEMATOCRIT 38.8 % (37.0-47.0); HGB - HEMOGLOBIN 13.3 g/dL (12.0-16.0); LYMPHOCYTES # (AUTO) 1.5 10^3/uL (1.5-3.5); LYMPHOCYTES % (AUTO) 31.7 %; MEAN CORPUSCULAR HEMOGLOBIN 31.9 pg (27.0-31.0); MEAN CORPUSCULAR HGB CONC 34.3 g/dL (32.0-36.0); MEAN PLATELET VOLUME 8.1 fL (7.9-10.8); MONOCYTES # (AUTO) 0.3 10^3/uL (0.0-1.0); MONOCYTES % (AUTO) 6.9 %; NEUTROPHILS # (AUTO) 2.8 10^3/uL (1.5-6.6); NEUTROPHILS % (AUTO) 57.9 %; PLT - PLATELET COUNT 171 10^3/uL (130-450); RED BLOOD COUNT 4.17 10^6/uL (4.20-5.40); RED CELL DISTRIBUTION WIDTH 12.5 % (12.0-15.0); WHITE BLOOD COUNT 4.8 x10^3/uL (4.8-10.8)
[2020-10-14 09:10] LABS: ALBUMIN 4.2 g/dL (3.2-5.5); ALBUMIN/GLOBULIN RATIO 1.3 (1.0-2.2); ALKALINE PHOSPHATASE 45 IU/L (42-121); ALT ALANINE AMINOTRANSFERASE 18 IU/L (10-60); AST ASPARTATE AMINOTRANSFERASE 22 IU/L (10-42); BUN - BLOOD UREA NITROGEN 26 mg/dL (6-20); CALCIUM 9.6 mg/dL (8.5-10.3); CARBON DIOXIDE - CO2 29 mmol/L (21-32); CHLORIDE 102 mmol/L (101-111); CHOL/HDL RATIO 2.7 (<4.4); CHOLESTEROL 232 mg/dL; CREATININE 0.9 mg/dL (0.4-1.0); GFR - MDRD 62 (>89); GLUCOSE 103 mg/dL (70-100); HDL CHOLESTEROL 85 mg/dL; LDL CHOLESTEROL,CALCULATED 130 mg/dL; LDL/HDL RATIO 1.5 (<4.4); SODIUM 140 mmol/L (135-145); TOTAL PROTEIN 7.5 g/dL (6.7-8.2); TRIGLYCERIDES 84 mg/dL; VLDL CHOLESTEROL 17 mg/dL
== END 2020-10-14 07:59 | disposition home or self-care (01) ==
LOC: LAB 07:58
PROVIDERS: ATTEND Family Medicine
DX: E78.5 Hyperlipidemia, unspecified (principal); I63.9 Cerebral infarction, unspecified
CPT/HCPCS: 36415; 80053; 80061; 83721; 85025

== ENCOUNTER 2020-10-29 12:42 | Outpatient (CLI) | payer MEDICARE, OTHER ==
--- NOTE | 2020-10-29 13:27 | DEXA Report ---
PROCEDURE: Dexa Spine and/or Hip INDICATIONS: OSTEOPENIA TECHNIQUE: Dual energy x-ray absorptiometry (DXA) was performed on a [employer] System. Regions measur ed are the AP Spine, femoral neck, and if needed forearm. COMPARISON: 11/28/2016. FINDINGS: Lumbar Spine: Bone Mineral Density 1.230 g/cm/cm,T score 0.4. There is interval 15.9% increase in total lumbar s pine bone mineral density. Left Hip: Bone Mineral Density 1.065 g/cm/cm,T score 0.5. There is interval 4.5% increase in left total hip zoe ne mineral density. Left Femoral Neck: Bone Mineral Density 1.038 g/cm/cm, T score 0.0. (T score greater or equal to -1.0: NORMAL) (T score from -1.1 to -2.4: OSTEOPENIA) (T score less than or equal to -2.5 to: OSTEOPOROSIS) Impression: Normal bone mineral density. Patients with diagnosis of osteoporosis or osteopenia should have regular bone mineral density assess ment. For those eligible for Medicare, routine testing is allowed once every 2 years. Testing frequ ency can be increased for patients who have rapidly progressing disease or for those who are receivin g medical therapy to restore bone mass. Reviewed by: Shawn Mercedes MD on 10/29/2020 1:25 PM PDT Approved by: Shawn Mercedes MD on 10/29/2020 1:25 PM PDT Station ID: [id number]
== END 2020-10-29 12:43 | disposition home or self-care (01) ==
LOC: DI 12:42
PROVIDERS: ATTEND Family Medicine
DX: M85.88 Other specified disorders of bone density and structure, other site (principal)

== ENCOUNTER 2021-09-29 12:00 | Outpatient (CLI) | payer MEDICARE, OTHER ==
--- NOTE | 2021-09-29 14:24 | XRAY Report ---
PROCEDURE: Ribs w/PA Chest RT INDICATIONS: BACK PAIN,THORACIC REGION,RIB PAIN RT TECHNIQUE: 2 views of the right ribs were acquired, along with a single view chest. COMPARISON: Prior study dated 08/27/2014 is not available for review. FINDINGS: Surgical changes and devices: None. Bones and chest wall: There are acute, mildly displaced posterolateral right sixth through ninth rib fractures with possible fracture over the anterior costochondral junction of the right 10th rib. No other fractures or dislocations. No suspicious bony lesions. Overlying soft tissues appear unremark able. Lungs and pleura: No pneumothorax. Likely small right pleural effusion. Lungs appear clear. Mediastinum: Mediastinal contours appear normal. Heart size is normal. IMPRESSION: Acute, displaced posterolateral right sixth through ninth rib fractures. Possible fracture over the a nterior costochondral junction of the right 10th rib. Otherwise, no acute cardiopulmonary abnormalities. No pneumothorax. Small right pleural effusion. Reviewed by: José Miguel Vela MD on 09/29/2021 2:23 PM PDT Approved by: José Miguel Vela MD on 09/29/2021 2:23 PM PDT Station ID: [id number]
== END 2021-09-29 12:01 | disposition home or self-care (01) ==
LOC: DI 12:00
PROVIDERS: ATTEND Family Medicine
DX: M54.6 Pain in thoracic spine (principal); S22.41XA Multiple fractures of ribs, right side, initial encounter for closed fracture; J90 Pleural effusion, not elsewhere classified

== ENCOUNTER 2021-12-01 09:54 | Outpatient (CLI) | payer MEDICARE, OTHER ==
[2021-12-01 10:13] LABS: BASOPHILS # (AUTO) 0.1 10^3/uL (0.0-0.1); BASOPHILS % (AUTO) 1.3 %; EOSINOPHILS # (AUTO) 0.1 10^3/uL (0.0-0.7); HGB - HEMOGLOBIN 12.8 g/dL (12.0-16.0); LYMPHOCYTES # (AUTO) 1.8 10^3/uL (1.5-3.5); LYMPHOCYTES % (AUTO) 37.9 %; MEAN CORPUSCULAR HEMOGLOBIN 30.4 pg (27.0-31.0); MEAN CORPUSCULAR HGB CONC 33.7 g/dL (32.0-36.0); MEAN CORPUSCULAR VOLUME 90.3 fL (81.0-99.0); MONOCYTES # (AUTO) 0.3 10^3/uL (0.0-1.0); MONOCYTES % (AUTO) 6.4 %; NEUTROPHILS # (AUTO) 2.4 10^3/uL (1.5-6.6); NEUTROPHILS % (AUTO) 51.2 %; PLT - PLATELET COUNT 185 10^3/uL (130-450); RED BLOOD COUNT 4.21 10^6/uL (4.20-5.40); RED CELL DISTRIBUTION WIDTH 12.6 % (12.0-15.0); WHITE BLOOD COUNT 4.7 x10^3/uL (4.8-10.8)
[2021-12-01 10:38] LABS: ALBUMIN/GLOBULIN RATIO 1.3 (1.0-2.2); ALKALINE PHOSPHATASE 57 IU/L (42-121); ALT ALANINE AMINOTRANSFERASE 16 IU/L (10-60); AST ASPARTATE AMINOTRANSFERASE 23 IU/L (10-42); BILIRUBIN,TOTAL 0.9 mg/dL (0.2-1.0); BUN - BLOOD UREA NITROGEN 21 mg/dL (6-20); CALCIUM 9.8 mg/dL (8.5-10.3); CARBON DIOXIDE - CO2 25 mmol/L (21-32); CHLORIDE 104 mmol/L (101-111); CHOLESTEROL 232 mg/dL; CREATININE 0.7 mg/dL (0.4-1.0); GFR - MDRD 82 (>89); GLUCOSE 96 mg/dL (70-100); HDL CHOLESTEROL 78 mg/dL; LDL CHOLESTEROL,CALCULATED 127 mg/dL; LDL/HDL RATIO 1.6 (<4.4); POTASSIUM 3.6 mmol/L (3.5-5.0); SODIUM 138 mmol/L (135-145); TRIGLYCERIDES 135 mg/dL; VLDL CHOLESTEROL 27 mg/dL
[2021-12-01 10:43] LABS: THYROID STIMULATING HORMONE 2.33 uIU/mL (0.34-5.60)
[2021-12-01 12:24] LABS: ESTIMATED AVERAGE GLUCOSE 117 mg/dL (70-100); HEMOGLOBIN A1c% 5.7 % (4.27-6.07)
== END 2021-12-01 09:55 | disposition home or self-care (01) ==
LOC: LAB 09:54
PROVIDERS: ATTEND Nurse Practitioner Family
DX: I10 Essential (primary) hypertension (principal); E78.5 Hyperlipidemia, unspecified; E66.9 Obesity, unspecified; Z79.899 Other long term (current) drug therapy
CPT/HCPCS: 36415; 80053; 80061; 83036; 83721; 84443; 85025

== ENCOUNTER 2022-05-31 09:11 | Outpatient (CLI) | payer MEDICARE, OTHER ==
[2022-05-31 09:30] LABS: BASOPHILS # (AUTO) 0.1 10^3/uL (0.0-0.1); BASOPHILS % (AUTO) 1.4 %; EOSINOPHILS # (AUTO) 0.1 10^3/uL (0.0-0.7); EOSINOPHILS % (AUTO) 2.3 %; HCT - HEMATOCRIT 38.6 % (37.0-47.0); HGB - HEMOGLOBIN 12.8 g/dL (12.0-16.0); LYMPHOCYTES # (AUTO) 1.5 10^3/uL (1.5-3.5); LYMPHOCYTES % (AUTO) 34.6 %; MEAN CORPUSCULAR HEMOGLOBIN 30.8 pg (27.0-31.0); MEAN CORPUSCULAR HGB CONC 33.2 g/dL (32.0-36.0); MEAN CORPUSCULAR VOLUME 92.8 fL (81.0-99.0); MONOCYTES # (AUTO) 0.3 10^3/uL (0.0-1.0); MONOCYTES % (AUTO) 6.7 %; NEUTROPHILS # (AUTO) 2.4 10^3/uL (1.5-6.6); NEUTROPHILS % (AUTO) 54.8 %; PLT - PLATELET COUNT 175 10^3/uL (130-450); RED BLOOD COUNT 4.16 10^6/uL (4.20-5.40); RED CELL DISTRIBUTION WIDTH 12.5 % (12.0-15.0); WHITE BLOOD COUNT 4.4 x10^3/uL (4.8-10.8)
[2022-05-31 09:50] LABS: ALBUMIN 4.1 g/dL (3.2-5.5); ALBUMIN/GLOBULIN RATIO 1.2 (1.0-2.2); ALKALINE PHOSPHATASE 46 IU/L (42-121); ALT ALANINE AMINOTRANSFERASE 16 IU/L (10-60); AST ASPARTATE AMINOTRANSFERASE 22 IU/L (10-42); BILIRUBIN,DIRECT 0.2 mg/dL (0.1-0.5); BILIRUBIN,TOTAL 0.8 mg/dL (0.2-1.0); BILIRUBIN,TOTAL 0.9 mg/dL (0.2-1.0); BUN - BLOOD UREA NITROGEN 26 mg/dL (6-20); CALCIUM 9.5 mg/dL (8.5-10.3); CARBON DIOXIDE - CO2 26 mmol/L (21-32); CHLORIDE 105 mmol/L (101-111); CHOL/HDL RATIO 2.4 (<4.4); CHOLESTEROL 208 mg/dL; CREATININE 0.8 mg/dL (0.4-1.0); GFR - MDRD 71 (>89); GLUCOSE 99 mg/dL (70-100); HDL CHOLESTEROL 87 mg/dL; LDL CHOLESTEROL,CALCULATED 103 mg/dL; LDL/HDL RATIO 1.2 (<4.4); POTASSIUM 3.7 mmol/L (3.5-5.0); SODIUM 140 mmol/L (135-145); TOTAL PROTEIN 7.3 g/dL (6.7-8.2); TRIGLYCERIDES 90 mg/dL; VLDL CHOLESTEROL 18 mg/dL
[2022-05-31 10:02] LABS: THYROID STIMULATING HORMONE 1.6 uIU/mL (0.34-5.60)
[2022-05-31 10:04] LABS: FREE T4 (FREE THYROXINE) 0.9 ng/dL (0.58-1.64)
[2022-05-31 13:07] LABS: ESTIMATED AVERAGE GLUCOSE 117 mg/dL (70-100); HEMOGLOBIN A1c% 5.7 % (4.27-6.07)
== END 2022-05-31 09:12 | disposition home or self-care (01) ==
LOC: LAB 09:11
PROVIDERS: ATTEND Internal Medicine Cardiovascular Disease
DX: I10 Essential (primary) hypertension (principal); Z13.29 Encounter for screening for other suspected endocrine disorder; E78.5 Hyperlipidemia, unspecified; Z86.79 Personal history of other diseases of the circulatory system
CPT/HCPCS: 36415; 80053; 80061; 80076; 83036; 83721; 84439; 84443; 85025

== ENCOUNTER 2022-06-24 07:25 | Outpatient (CLI) | payer MEDICARE, OTHER ==
--- NOTE | 2022-06-26 12:09 | MRI Report ---
PROCEDURE: SHOULDER WO - LT INDICATIONS: LEFT SHOULDER PAIN TECHNIQUE: Noncontrast oblique coronal T2 fast spin echo with fat saturation, oblique sagittal T1 spin echo and T2 fast spin echo with fat saturation, axial T1 spin echo and T2 fast spin echo with fat saturation a nd 3-D gradient echo through the shoulder. COMPARISON: None. FINDINGS: Image quality: Images are mildly degraded by patient motion on multiple pulse sequences despite repea t sequences being acquired. Diagnostic information is obtained. Rotator cuff: There is at least high-grade partial bursal sided tearing of the supraspinatus tendon a nd anterior fibers infraspinatus tendon suspected full-thickness perforation. Moderate to severe infr aspinatus tendinosis. The teres minor and subscapularis tendons are intact. There is no significant r otator cuff muscle atrophy. Bones and bursae: No acute trabecular bone injury or fracture. Chronic traction cystic changes are se en in the posterosuperior humeral head. No definite full-thickness glenohumeral cartilage defect give n artifact related to patient motion. Mild to moderate acromioclavicular joint osteoarthrosis is note d with marginal osteophyte formation and mild spondylosis at changes. There is a moderate amount of f luid in the subacromial/subdeltoid bursa that may communicate with the glenohumeral joint space. Capsule and soft tissues: No displaced labral tear is seen. There is moderate tendinosis of the proxi mal biceps long head tendon. There is effacement of the normal fat signal in the rotator interval. Th e glenohumeral ligaments are grossly intact. IMPRESSION: 1.At least high-grade partial bursal sided tearing of the supraspinatus tendon and the anterior fiber s infraspinatus tendon at their distal insertions with suspected full-thickness perforation component . Moderate to severe tendinosis of the posterior infraspinatus tendon is noted. 2.Moderate tendinosis of the proximal biceps long head tendon. 3.Mild to moderate acromioclavicular joint osteoarthrosis. 4.Moderate subacromial/subdeltoid bursal effusion, which may communicate with the glenohumeral joint space. Reviewed by: Conor Jaimes MD on 06/26/2022 12:08 PM PDT Approved by: Conor Jaimes MD on 06/26/2022 12:08 PM PDT Station ID: [id number]
== END 2022-06-24 07:26 | disposition home or self-care (01) ==
LOC: DI 07:25
PROVIDERS: ATTEND Nurse Practitioner Family
DX: M75.112 Incomplete rotator cuff tear or rupture of left shoulder, not specified as traumatic (principal); M67.922 Unspecified disorder of synovium and tendon, left upper arm; M19.012 Primary osteoarthritis, left shoulder; M25.412 Effusion, left shoulder

== ENCOUNTER 2022-06-29 09:02 | Outpatient (CLI) | payer MEDICARE, OTHER ==
[2022-06-29 09:26] LABS: CALCIUM 9.2 mg/dL (8.5-10.3); CREATININE 0.8 mg/dL (0.4-1.0); POTASSIUM 3.4 mmol/L (3.5-5.0)
== END 2022-06-29 09:03 | disposition home or self-care (01) ==
LOC: LAB 09:02
PROVIDERS: ATTEND Internal Medicine Cardiovascular Disease
DX: I10 Essential (primary) hypertension (principal)
CPT/HCPCS: 36415; 80048

== ENCOUNTER 2022-12-15 10:07 | Outpatient (CLI) | payer MEDICARE, OTHER ==
[2022-12-15 10:43] LABS: CALCIUM 9.7 mg/dL (8.5-10.3); CREATININE 0.7 mg/dL (0.6-1.3); MAGNESIUM 1.9 mg/dL (1.7-2.3); POTASSIUM 3.9 mmol/L (3.5-4.5)
== END 2022-12-15 10:08 | disposition home or self-care (01) ==
LOC: LAB 10:07
PROVIDERS: ATTEND Internal Medicine Cardiovascular Disease
DX: R25.2 Cramp and spasm (principal)
CPT/HCPCS: 36415; 80048; 83735